=== PATIENT | female | born 1975 | race Caucasian/White ===

== ENCOUNTER 2017-04-06 07:59 | Day surgery (SDC) | payer BC, OTHER ==
--- NOTE | ~2017-04-06 | EGD ---
EGD REPORT [facility] [address] [address] NAME: SRUTHI HILL : [birth year] STATUS : REG [facility] [place] PAT#: [id number] AGE: 41 ADM/REG DATE : 04/06/17 MR#: [id number] REPORT SERV DATE: 04/06/17 DICTATED BY: DAVIS BONILLA DATE: 04/06/17 REPORT STATUS : Draft [facility] DATE: 04/06/17 Endoscopy Center Patient Name: Sruthi Hill Date of : 1975 Attending MD: DAVIS BONILLA MD Procedure Date No Time: 04/06/2017 Procedure: Colonoscopy Indications: High risk colon cancer surveillance: Personal history of colonic polyps, Last colonoscopy: 2011 Referring MD: RICARDO ARORA MD Medicines: See the Anesthesia note for documentation of the administered medications Complications: No immediate complications. Procedure: Pre-Anesthesia Assessment: - ASA Grade Assessment: II - A patient with mild systemic disease. After I obtained informed consent, the scope was passed under direct vision. Throughout the procedure, the patient's blood pressure, pulse, and oxygen saturations were monitored continuously. The PCF [id number] was introduced through the anus and advanced to the terminal ileum, with identification of the appendiceal orifice and IC valve. The colonoscopy was performed without difficulty. The patient tolerated the procedure well. The quality of the bowel preparation was adequate. Findings: The perianal and digital rectal examinations were normal. Internal hemorrhoids were found during retroflexion and were small. Impression: - Internal hemorrhoids. Recommendation: - Patient has a contact number available for emergencies. The signs and symptoms of potential delayed complications were discussed with the patient. Return to normal activities tomorrow. Written discharge instructions were provided to the patient. - Regular diet. - Continue present medications. - Repeat colonoscopy in 5 years for surveillance. - Follow up with my nurse practitioner in 4 weeks Procedure Code(s): --- Professional --- 46447, Colonoscopy, flexible, proximal to splenic flexure; diagnostic, with or without collection of EGD REPORT [facility] [address] [facility] [address] [address] NAME: SRUTHI HILL : [birth year] STATUS : REG [facility]#: [id number] AGE: 41 ADM/REG DATE : 04/06/17 MR#: [id number] REPORT SERV DATE: 04/06/17 DICTATED BY: DAVIS BONILLA DATE: 04/06/17 REPORT STATUS : Draft TRANSCRIBED BY: [employer] DATE: 04/06/17 specimen(s) by brushing or washing, with or without colon decompression (separate procedure) Diagnosis Code(s): --- Professional --- K64.8, Other hemorrhoids Z86.010, Personal history of colonic polyps CPT copyright 2013 [employer]. All rights reserved. The codes documented in this report are preliminary and upon pinion and wheel truer review may be revised to meet current compliance requirements. Davis Bonilla MD DAVIS BONILLA MD 04/06/2017 10:01 AM This report has been signed electronically. Number of Addenda: 0 Note Initiated On: 04/06/2017 9:34 AM Scope Withdrawal Time 0 hours 7 minutes 51 seconds [address] [facility] [address] [id number]
--- NOTE | ~2017-04-06 | EGD ---
EGD REPORT [facility] [address] [address] NAME: SRUTHI HILL : [birth year] STATUS : REG [facility] [place] PAT#: [id number] AGE: 41 ADM/REG DATE : 04/06/17 MR#: [id number] REPORT SERV DATE: 04/06/17 DICTATED BY: DAVIS BONILLA DATE: 04/06/17 REPORT STATUS : Draft [facility] DATE: 04/06/17 Endoscopy Center Patient Name: Sruthi Hill Date of : 1975 Attending MD: DAVIS BONILLA MD Procedure Date No Time: 04/06/2017 Procedure: Upper GI endoscopy Indications: Gastro-esophageal reflux disease Referring MD: RICARDO ARORA MD Medicines: See the Anesthesia note for documentation of the administered medications Complications: No immediate complications. Procedure: Pre-Anesthesia Assessment: - ASA Grade Assessment: II - A patient with mild systemic disease. After obtaining informed consent, the endoscope was passed under direct vision. Throughout the procedure, the patient's blood pressure, pulse, and oxygen saturations were monitored continuously. The GIF [id number] [id number] was introduced through the mouth, and advanced to the second part of duodenum. The upper GI endoscopy was accomplished without difficulty. The patient tolerated the procedure well. Findings: The examined duodenum was normal. The entire examined stomach was normal. The cardia and gastric fundus were normal on retroflexion. A small hiatus hernia was present. Impression: - Normal examined duodenum. - Normal stomach. - Hiatus hernia. Recommendation: - Patient has a contact number available for emergencies. The signs and symptoms of potential delayed complications were discussed with the patient. Return to normal activities tomorrow. Written discharge instructions were provided to the patient. - Regular diet. - Continue present medications. Procedure Code(s): --- Professional --- 43774, Esophagogastroduodenoscopy, flexible, transoral; diagnostic, including collection of specimen(s) by EGD REPORT [address] [address] NAME: SRUTHI HILL : [birth year] STATUS : [facility]#: [id number] AGE: 41 ADM/REG DATE : 04/06/17 MR#: [id number] REPORT SERV DATE: 04/06/17 DICTATED BY: DAVIS BONILLA DATE: 04/06/17 REPORT STATUS : Draft TRANSCRIBED BY: [employer] DATE: 04/06/17 brushing or washing, when performed (separate procedure) Diagnosis Code(s): --- Professional --- K44.9, Diaphragmatic hernia without obstruction or gangrene K21.9, Gastro-esophageal reflux disease without esophagitis CPT copyright 2013 [employer]. All rights reserved. The codes documented in this report are preliminary and upon production generalist review may be revised to meet current compliance requirements. Davis Bonilla MD DAVIS BONILLA MD 04/06/2017 9:46 AM This report has been signed electronically. Number of Addenda: 0 Note Initiated On: 04/06/2017 9:37 AM Scope Withdrawal Time 0 hours 0 minutes 0 seconds [address] [place] [address]
[~2017-04-06 07:59] MED LIST: ABILIFY5 PO; AXERT12.5 MG PO; GLYCOLAX3350 N1 PO; HYDRO PO; KLONO2 PO; MOVANTIK25 MG PO; MULTIPLE OR; NEUR300 PO; NEXIUM20 M1 PO; NEXIUM40 PO; NORCO1 TAB PO; REQUIP1 PO; TOPAMAX100 PO; [UNRECOGNIZED DRUG - OTHER] PO
== END 2017-04-06 23:59 | disposition home or self-care (01) ==
LOC: DMU 07:59
PROVIDERS: Internal Medicine Gastroenterology
PROC: 0DJ08ZZ Inspection of Upper Intestinal Tract, Via Natural or Artificial Opening Endoscopic (ICD-10-PCS; principal; 2017-04-06 09:30)
PROC: 0DJD8ZZ Inspection of Lower Intestinal Tract, Via Natural or Artificial Opening Endoscopic (ICD-10-PCS; 2017-04-06 09:30)
DX: Z12.11 Encounter for screening for malignant neoplasm of colon (principal); K64.8 Other hemorrhoids; K44.9 Diaphragmatic hernia without obstruction or gangrene; G25.81 Restless legs syndrome; K58.9 Irritable bowel syndrome, unspecified; M79.7 Fibromyalgia; Z86.010 Personal history of colon polyps; Z98.51 Tubal ligation status; Z98.890 Other specified postprocedural states
CPT/HCPCS: 84703